=== PATIENT | female | born 1930 | race Caucasian/White ===

== ENCOUNTER 2016-06-08 09:14 | Emergency (ER) | payer BC, MEDICARE ==
--- NOTE | 2016-06-08 10:04 | UC ---
Cardiac HPI - HPI Summary HPI Summary: She has atrial fibriilation. She saw Dr. Tinsley years ago. Medications reviewed. She noted Chest pressure at 3am and some associated nausea. this all resolved. SHe has also had sohan leg swelling that is the first time. - History of Current Complaint Chief Complaint: UCChestPain Stated Complaint: CHEST PRESSURE,NAUSEA Time Seen by Provider: 06/08/16 09:18 Hx Obtained From: Patient Onset/Duration: Gradual Onset Initial Severity: Moderate Current Severity: None Chest Pain Location: Mid Sternal Character: Dull/Aching, Heaviness, Pressure/Squeezing Aggravating: Nothing Alleviating: Nothing Associated Signs & Symptoms: Positive: Chest Pain, Swelling. Negative: SOB, Fever, Cough - Allergy/Home Medications Allergies/Adverse Reactions: Allergies Allergy/AdvReac Type Severity Reaction Status Date / Time Glucosamine Allergy Unknown Verified 06/08/16 09:33 Reaction Details Shellfish-derived Products Allergy Vomiting Verified 06/08/16 09:33 Home Medications: Home Medications Acetaminophen [Tylenol] 2 tab PO PRN 06/08/16 [History Confirmed 06/08/16] Alum & Mag Hydrox-Simethicone [Maalox Advanced Maximum S 400-400-40 mg/5Ml] 1 fausto PRN 06/08/16 [History] Aspirin Low Dose CHEW TAB* [Aspirin Low Dose TAB*] 81 mg PO DAILY 06/08/16 [ History Confirmed 06/08/16] Atenolol TAB* [Tenormin TAB* 25 MG] 25 mg PO DAILY 06/08/16 [History Confirmed 06/08/16] Bismuth Subsalicylate* [Peptic Relief*] 1 fausto PRN 06/08/16 [History] Calcium Carbonate [Calcium 600] 1 tab DAILY 06/08/16 [History Confirmed 06/08/16 ] Cholecalciferol [Vitamin D] 1,000 unit PO DAILY 06/08/16 [History Confirmed ] Digoxin TAB* [Lanoxin TAB*] 1 tab DAILY 06/08/16 [History Confirmed 06/08/16] Enalapril Maleate [Vasotec] 10 mg PO DAILY 06/08/16 [History Confirmed 06/08/16] Furosemide TAB* [Lasix TAB*] 1 tab SEE INSTRUCTIONS 06/08/16 [History Confirmed 06/08/16] Guaifenesin [Diabetic Tussin] 10 ml Q4HR PRN 06/08/16 [History Confirmed ] Magnesium Hydroxide LIQ* [Milk of Magnesia LIQ*] 5 ml PRN 06/08/16 [History] Magnesium Oxide TAB* [MagOx 400 TAB*] 1 tab TID 06/08/16 [History Confirmed ] Multiple Vitamins W/ Iron [Daily Tracey Multivitamin/I] 1 tab PO DAILY 06/08/16 [ History Confirmed 06/08/16] Omeprazole CAP* [Prilosec CAP* 20 MG] 20 mg PO DAILY 06/08/16 [History Confirmed 06/08/16] Oxybutynin XL TAB* [Ditropan Xl TAB*] 5 mg PO DAILY 06/08/16 [History Confirmed 06/08/16] Potassium Chlor TAB* [Klor Con ER TAB 10 MEQ*] 1 tab SEE INSTRUCTIONS 06/08/16 [ History Confirmed 06/08/16] Sertraline* [Zoloft*] 50 mg PO DAILY 06/08/16 [History Confirmed 06/08/16] Simvastatin TAB(NF) [Zocor(NF)] 20 mg PO DAILY 06/08/16 [History Confirmed 06/08] PMH/Surg Hx/FS Hx/Imm Hx Cardiovascular History Of: Reports: Cardiac Disorders - a-fib; palpitations, Hypertension - Surgical History Surgical History: Yes Surgery Procedure, Year, and Place: Hip replacement - Social History Alcohol Use: Occasionally Substance Use Type: None Smoking Status (MU): Never Smoked Tobacco - Immunization History Most Recent Influenza Vaccination: 2016 Most Recent Pneumonia Vaccination: UTD Review of Systems All Other Systems Reviewed And Are Negative: Yes Physical Exam Triage Information Reviewed: Yes Appearance: Well-Appearing, No Pain Distress, Well-Nourished Vital Signs: Initial Vital Signs Temp 98.4 F 06/08/16 09:34 Pulse 70 06/08/16 09:34 Resp 18 06/08/16 09:34 BP 147/86 06/08/16 09:34 Pulse Ox 97 06/08/16 09:34 Vital Signs Reviewed: Yes Eyes: Positive: Conjunctiva Clear. Negative: Conjunctiva Inflamed Neck exam: Normal Neck: Positive: Supple, Nontender, No Lymphadenopathy Respiratory: Positive: Crackles - L lower lobe mild. Cardiovascular: Positive: No Murmur - irregular. Abdomen Description: Positive: Nontender, No Organomegaly, Soft Musculoskeletal: Positive: Edema @ - sohan ankle and foot edema. Neurological Exam: Normal Psychological Exam: Normal Skin Exam: Normal Skin: Negative: rashes - Assessment/Plan Course Of Treatment: chest pressure with nausea and EKG that suggest strain. I have no old ekg to compare. there is new edema and fine rales onthe left. Differential is long and we would need further workup to ensure her safety. pt does not want to travel by ambulance despite my warnings. she wholeheartedly agrees [facility] transfer. . - Differential Diagnoses - Chest Pain Differential Diagnosis/HQI/PQRI: Acute MS, ACS, Angina, Aortic Aneurysm, CHF, GI Disease, Lower Respiratory Infection, Pulmonary Edema, Pulmonary Embolism - Clinical Impression Provider Diagnoses: chest pressure. abnormal ekg Discharge - Discharge Plan Condition: Guarded Disposition: TRANS HIGHER LVL OF CARE FAC Referrals: Vivien Gonzáles MD [Primary Care Provider] - Additional Instructions: go immediately to the [facility] as we discussed.
[2016-06-08 10:39] VITALS: BP 143/85
== END 2016-06-08 10:45 | disposition short-term general hospital (02) ==
LOC: UCCORT 09:14
DX: R07.89 Other chest pain (principal); I48.91 Unspecified atrial fibrillation; Z79.01 Long term (current) use of anticoagulants; Z96.649 Presence of unspecified artificial hip joint
CPT/HCPCS: 93005; 99213; G0463